=== PATIENT | male | born 1960 | race Caucasian/White ===

== ENCOUNTER 2022-11-02 18:52 | Inpatient (IN) | payer OTHER, MEDICAID ==
[~2022-11-02] VITALS: Ht 182.9 cm; Wt 77.1 kg
[2022-11-02 19:04] VITALS: BP 126/74
[2022-11-02 19:54] LABS: PROTHROMBIN TIME 10.9 secs (10.8-13.4)
--- NOTE | 2022-11-02 19:55 | NUR ---
Patient resting in bed, nonverbal, awake, chest rise and fall symmetrical, no s/s of pain or s/s of distress, patient on monitor.
[2022-11-02 20:07] LABS: BASOPHILS % (AUTO) 0.6 % (0.0-2.0); EOSINOPHILS # (AUTO) 0.3 K/uL (0-0.4); EOSINOPHILS % (AUTO) 3.5 % (0.0-4.0); HEMATOCRIT 32.6 % (36-52); HEMOGLOBIN 11.3 g/dL (12.0-18.0); LYMPHOCYTES # (AUTO) 1.5 K/uL (2.0-11.5); LYMPHOCYTES % (AUTO) 19.1 % (20.5-51.1); MEAN CORPUSCULAR HEMOGLOBIN 30 pg (27-31); MEAN CORPUSCULAR HGB CONC 35 g/dL (33-37); MEAN CORPUSCULAR VOLUME 86.2 fL (80-94); MONOCYTES # (AUTO) 0.7 K/uL (0.8-1.0); MONOCYTES % (AUTO) 8.6 % (1.7-9.3); NEUTROPHILS # (AUTO) 5.3 K/uL (1.8-7.7); NEUTROPHILS % (AUTO) 68.2 % (42.2-75.2); PLATELET COUNT (AUTO) 541 K/uL (140-450); RED BLOOD CELL COUNT(AUTO) 3.78 MIL/uL (4.20-6.10); RED CELL DISTRIBUTION WIDTH 13.4 % (11.6-13.7); WHITE BLOOD COUNT (AUTO) 7.7 K/uL (4.8-10.8)
[2022-11-02 20:25] LABS: ALBUMIN 2.4 g/dL (3.4-5.0); ANION GAP 13.8 (8-16); CARBON DIOXIDE 26.4 mmol/L (21-32); CREATININE 0.9 mg/dL (0.6-1.3); POTASSIUM 4.2 mmol/L (3.5-5.1); TOTAL BILIRUBIN 0.4 mg/dL (0.0-1.0)
[2022-11-02] MEDS ORDERED: POTASSIUM CHLORIDE 10 MEQ TABER PO PRN (20:55)
[2022-11-02] MEDS ORDERED: MORPHINE SULFATE 2 MG/ML SYR IVP PRN (20:55)
[2022-11-02] MEDS ORDERED: LORazepam 2 MG/ML VIAL IVP PRN (20:55)
[2022-11-02] MEDS ORDERED: ACETAMINOPHEN 325 MG TAB PO PRN (20:55)
[2022-11-02] MEDS ORDERED: DOCUSATE SODIUM 100 MG GELCAP PO PRN (20:55)
[2022-11-02] MEDS ORDERED: ONDANSETRON 4 MG/2 ML VIAL IVP PRN (20:55)
[2022-11-02] MEDS ORDERED: MAG SULF 2000 MG/WATER PREMIX 50 ML IV PRN (20:55)
[2022-11-02] MEDS ORDERED: ZOLPIDEM 10 MG TAB PO PRN (20:55)
[2022-11-02] MEDS ORDERED: DEXTROSE 50% 50 ML SYR IVP PRN (21:00)
[2022-11-02] MEDS: DEXT 5% /NACL 0.9% 1,000 ML IV SCH (21:32)
[2022-11-02] MEDS: BLOOD GLUCOSE MONITORING 1 DEV DEV FS SCH (21:41)
--- NOTE | 2022-11-02 21:55 | NUR ---
Patient resting in bed, nonverbal, awake, chest rise and fall symmetrical, no s/s of pain or s/s of distress, patient on monitor.
--- NOTE | 2022-11-02 22:10 | NUR ---
Patient will be admitted to care of Leonila FLOWERS. Admited to [facility]. Will go to room 123B. Belongings list completed. Report to Leonila FLOWERS. Leonila FLOWERS verbalized understanding of report, no further questions.
--- NOTE | 2022-11-02 23:00 | NUR ---
62 YEARS OLD MALE PT ADMITTED FROM ER WITH DX OF G-TUBE MALFUNCTION, PT REPORTED PULLED OUT GT AWAKE NON-VERBAL, WITH H/X CVA, WITH L/R WEAKNESS. PT ORIENTED TO ROOM, INFORMED OF ALL ORDERS CONTINUE WITH PLAN OF CARE
[2022-11-03 00:10] VITALS: BP 146/79
[2022-11-03 04:00] VITALS: BP 136/76
[2022-11-03 06:06] LABS: BASOPHILS # (AUTO) 0.1 K/uL (0.00-0.22); BASOPHILS % (AUTO) 0.8 % (0.0-2.0); EOSINOPHILS # (AUTO) 0.3 K/uL (0-0.4); EOSINOPHILS % (AUTO) 4.4 % (0.0-4.0); HEMATOCRIT 32.7 % (36-52); HEMOGLOBIN 11.3 g/dL (12.0-18.0); LYMPHOCYTES # (AUTO) 1.7 K/uL (2.0-11.5); LYMPHOCYTES % (AUTO) 24.2 % (20.5-51.1); MEAN CORPUSCULAR HEMOGLOBIN 30 pg (27-31); MEAN CORPUSCULAR HGB CONC 35 g/dL (33-37); MEAN CORPUSCULAR VOLUME 86.7 fL (80-94); MONOCYTES # (AUTO) 0.6 K/uL (0.8-1.0); MONOCYTES % (AUTO) 8.8 % (1.7-9.3); NEUTROPHILS # (AUTO) 4.3 K/uL (1.8-7.7); NEUTROPHILS % (AUTO) 61.8 % (42.2-75.2); PLATELET COUNT (AUTO) 572 K/uL (140-450); RED BLOOD CELL COUNT(AUTO) 3.78 MIL/uL (4.20-6.10); RED CELL DISTRIBUTION WIDTH 13.4 % (11.6-13.7)
[2022-11-03 06:36] LABS: ANION GAP 9.5 (8-16); CARBON DIOXIDE 29.2 mmol/L (21-32); CREATININE 1.3 mg/dL (0.6-1.3); POTASSIUM 3.7 mmol/L (3.5-5.1)
[2022-11-03] MEDS: BLOOD GLUCOSE MONITORING 1 DEV DEV FS SCH ×4 (06:44→21:48)
[2022-11-03 08:00] VITALS: BP 158/94
--- NOTE | 2022-11-03 09:03 | NUR ---
PATIENT HAS BEEN SCREENED AND CATEGORIZED HIGH NUTRITION RISK. PATIENT WILL BE SEEN WITHIN 1-2 DAYS OF ADMISSION. FNS REFERRAL FOR "DYSPHAGIA" AND FNS NUTRITION CONSULT FOR "YOVANI 12 OR LOWER" RECEIVED ON 11/03/22 REVIEWED BY YONATHAN MEJIA RD
[2022-11-03] MEDS: DEXT 5% /NACL 0.9% 1,000 ML IV SCH (11:02)
[2022-11-03 16:00] VITALS: BP 142/92
--- NOTE | 2022-11-03 16:35 | NUR ---
11/03/22 RD INITIAL ASSESSMENT COMPLETED PLEASE REFER TO NUTRITION ASSESSMENT UNDER CARE ACTIVITY FOR ESTIMATED NUTRITIONAL NEEDS. 1. MONITOR NPO STATUS 2. WHEN/IF MEDICALLY APPROPRIATE TO START TF, RECOMMEND GLUCERNA 1.2 AT GOAL RATE 65 ML/HR, FWF 150 ML Q6H TOLERATED - PROVIDES 1560 ML TOTAL VOLUME, 1872 KCAL, 93 GM PROTEIN AND 1856 ML FREE WATER DAILY MEETING 100% ESTIMATED KCAL AND PROTEIN NEEDS; ADEQUATE - START TF AT 2O ML/HR INCREASE BY 2O ML Q4H UNTIL GOAL IS REACHED TOLERATED 3. MONITOR GI SYMPTOMS, GASTRIC RESIDUALS AND NUTRITION RELATED LAB VALUES 4. CONSULT RD PRN 5. RD TO FOLLOW-UP 2-3 DAYS, HIGH RISK REVIEWED BY YONATHAN MEJIA RD
--- NOTE | 2022-11-03 20:05 | NUR ---
PATIENT IS AWAKE IN BED. NO S/S OF RESPIRATORY DISTRESS ON ROOM AIR. DENIES PAIN. SKIN WARM AND DRY TO THE TOUCH. IVF INFUSING WELL. CALL LIGHT WITHIN REACH. ALL SAFETY PRECAUTIONS ARE IN PLACE.
--- NOTE | 2022-11-03 21:48 | NUR ---
BLOOD SUGAR WAS 154, NO INSULIN COVERAGE ORDERED BY DR MERCEDES. PATIENT IS NPO.
[2022-11-04] VITALS: BP 143/78
[2022-11-04] MEDS: DEXT 5% /NACL 0.9% 1,000 ML IV SCH ×3 (01:31→15:49)
[2022-11-04] MEDS: BLOOD GLUCOSE MONITORING 1 DEV DEV FS SCH ×4 (06:33→20:16)
--- NOTE | 2022-11-04 06:33 | NUR ---
CHECK BLOOD SUGAR WAS 137 NO INSULIN COVERAGE NEEDED.
[2022-11-04 07:07] LABS: BASOPHILS # (AUTO) 0.1 K/uL (0.00-0.22); BASOPHILS % (AUTO) 0.9 % (0.0-2.0); EOSINOPHILS # (AUTO) 0.3 K/uL (0-0.4); EOSINOPHILS % (AUTO) 5.3 % (0.0-4.0); HEMATOCRIT 33.3 % (36-52); HEMOGLOBIN 11.4 g/dL (12.0-18.0); LYMPHOCYTES # (AUTO) 1.7 K/uL (2.0-11.5); LYMPHOCYTES % (AUTO) 26.4 % (20.5-51.1); MEAN CORPUSCULAR HEMOGLOBIN 30 pg (27-31); MEAN CORPUSCULAR HGB CONC 34 g/dL (33-37); MEAN CORPUSCULAR VOLUME 88.7 fL (80-94); MONOCYTES # (AUTO) 0.6 K/uL (0.8-1.0); MONOCYTES % (AUTO) 9.4 % (1.7-9.3); NEUTROPHILS # (AUTO) 3.7 K/uL (1.8-7.7); PLATELET COUNT (AUTO) 593 K/uL (140-450); RED BLOOD CELL COUNT(AUTO) 3.76 MIL/uL (4.20-6.10); RED CELL DISTRIBUTION WIDTH 13.6 % (11.6-13.7); WHITE BLOOD COUNT (AUTO) 6.3 K/uL (4.8-10.8)
--- NOTE | 2022-11-04 07:19 | NUR ---
GAVE REPORT TO AM SHIFT NURSE FOR CONTINUITY OF CARE.
[2022-11-04 07:39] LABS: ANION GAP 8.5 (8-16); CARBON DIOXIDE 29.9 mmol/L (21-32); CREATININE 0.9 mg/dL (0.6-1.3); POTASSIUM 3.4 mmol/L (3.5-5.1)
--- NOTE | 2022-11-04 13:30 | NUR ---
WOUND CARE EVALUATION NOTES: REASON FOR EVALUATION: DISLODGED GTUBE. WOUND ASSESSMENT COMPLETED ON THIS 62 Y/O MALE ADMITTED TO [facility] UN[facility] FOR GTUBE MALFUNCTION. PATIENT IS FROM [facility]. PAST MEDICAL HISTORY INCLUDES CVA, HTN, HLD, DM , STROKE, LEFT SIDED DEFICITS, GTUBE. ALL ABOVE INFORMATION WAS OBTAINED FROM THE ADMISSION H&P. SKIN IS WARM TO TOUCH. PLAN OF CARE AND PRESSURE PREVENTATIVE MEASURES DISCUSSED WITH PATIENT AND PRIMARY RN. PATIENT ADMITTED WITH GTUBE MALFUNCTION AND OPEN STOMA ON LEFT UPPER ABDOMEN. COMORBIDITIES RELATED TO FURTHER SKIN BREAKDOWN SUCH DECREASED MOBILITY AND DECREASED FUNCTIONAL ABILITY. INTEGUMENTARY: - LEFT UPPER ABDOMEN PREVIOUS GTUBE STOMA 1 X 0.3 X 0 CM, ALREADY HAS CLOSED SCAB. NO DISCHARGE, ODOR, BLEEDING. PERIWOUND PINK, INTACT. RECOMMENDATIONS: - LEFT UPPER ABDOMEN PREVIOUS GTUBE STOMA: CLEANSE WITH NS, PAT DRY, AND COVER WITH ISLAND DRESSING. - TURN AND REPOSITION PATIENT Q2H TO LEFT AND RIGHT SIDE TO OFFLOAD SACRALCOCCYX. - ASSESS AND MONITOR SKIN CONDITION DURING POSITION CHANGE. PLEASE PAY ATTENTION TO SACRALCOCCYX AND HEELS. - KEEP SKIN DRY AND CLEAN AT ALL TIMES. - RD CONSULT RECOMMENDATIONS DISCUSSED WITH PRIMARY RN. WILL FOLLOW-UP PATIENT Q7-10 DAYS AND PRN. PLEASE CONTACT WOUND CARE NURSE FOR ANY CONCERNS AND CHANGES IN WOUND CONDITION.
[2022-11-04 16:00] VITALS: BP 159/85
--- NOTE | 2022-11-04 19:20 | NUR ---
RECEIVED PT IN BED AWAKE, NON-VERBAL. NO S/SX OF PAIN NOR DISCOMFORT. NO ACUTE RESPIRATORY DISTRESS. IV STARTED IN THE RIGHT UPPER ARM GAUGE 22 X1 ATTEMPT, PT TOLERATED WELL. INCONTINENT OF URINE, CLEANED PT AND MADE COMFORTABLE IN BED, BED ALARM ON, CALL LIGHT IN REACH.
[2022-11-04] MEDS ORDERED: KCL 20 MEQ IN 100 mL PREMIX 100 ML IV SCH (20:55)
[2022-11-05] VITALS: BP 156/82
[2022-11-05] MEDS: DEXT 5% /NACL 0.9% 1,000 ML IV SCH ×2 (05:44→21:42)
[2022-11-05 06:08] LABS: BASOPHILS # (AUTO) 0.1 K/uL (0.00-0.22); BASOPHILS % (AUTO) 1.1 % (0.0-2.0); EOSINOPHILS # (AUTO) 0.4 K/uL (0-0.4); EOSINOPHILS % (AUTO) 5.9 % (0.0-4.0); HEMATOCRIT 32.5 % (36-52); HEMOGLOBIN 11.1 g/dL (12.0-18.0); LYMPHOCYTES # (AUTO) 1.7 K/uL (2.0-11.5); LYMPHOCYTES % (AUTO) 24.6 % (20.5-51.1); MEAN CORPUSCULAR HEMOGLOBIN 30 pg (27-31); MEAN CORPUSCULAR HGB CONC 34 g/dL (33-37); MEAN CORPUSCULAR VOLUME 89.3 fL (80-94); MONOCYTES # (AUTO) 0.6 K/uL (0.8-1.0); NEUTROPHILS % (AUTO) 59.4 % (42.2-75.2); PLATELET COUNT (AUTO) 621 K/uL (140-450); RED BLOOD CELL COUNT(AUTO) 3.64 MIL/uL (4.20-6.10); RED CELL DISTRIBUTION WIDTH 13.7 % (11.6-13.7); WHITE BLOOD COUNT (AUTO) 6.8 K/uL (4.8-10.8)
[2022-11-05 06:14] LABS: ANION GAP 8.1 (8-16); CARBON DIOXIDE 29.5 mmol/L (21-32); CREATININE 0.9 mg/dL (0.6-1.3); POTASSIUM 3.6 mmol/L (3.5-5.1)
--- NOTE | 2022-11-05 06:30 | NUR ---
PATIENT IS ASLEEP. ALL NEEDS ATTENDED TO. PT IS STABLE CONDITION. SAFETY PRECAUTIONS IN PLACE, CALL LIGHT IN REACH
[2022-11-05] MEDS: BLOOD GLUCOSE MONITORING 1 DEV DEV FS SCH ×4 (06:37→21:43)
[2022-11-05 08:00] VITALS: BP 155/80
[2022-11-05 16:00] VITALS: BP 160/88
--- NOTE | 2022-11-05 23:56 | NUR ---
PT AWAKE REMOVING CLOTHES PULLING AT IV LINE NOTED TO BE ANXIOUS ATIVAN GIVEN ORDERED
[2022-11-06] VITALS: BP 139/78
[2022-11-06 05:44] LABS: BASOPHILS # (AUTO) 0.1 K/uL (0.00-0.22); EOSINOPHILS # (AUTO) 0.3 K/uL (0-0.4); EOSINOPHILS % (AUTO) 5.2 % (0.0-4.0); HEMATOCRIT 33.1 % (36-52); HEMOGLOBIN 11.1 g/dL (12.0-18.0); LYMPHOCYTES # (AUTO) 1.7 K/uL (2.0-11.5); LYMPHOCYTES % (AUTO) 27.9 % (20.5-51.1); MEAN CORPUSCULAR HEMOGLOBIN 30 pg (27-31); MEAN CORPUSCULAR HGB CONC 34 g/dL (33-37); MEAN CORPUSCULAR VOLUME 88.3 fL (80-94); MONOCYTES # (AUTO) 0.5 K/uL (0.8-1.0); MONOCYTES % (AUTO) 8.6 % (1.7-9.3); NEUTROPHILS # (AUTO) 3.5 K/uL (1.8-7.7); NEUTROPHILS % (AUTO) 57.3 % (42.2-75.2); PLATELET COUNT (AUTO) 611 K/uL (140-450); RED BLOOD CELL COUNT(AUTO) 3.75 MIL/uL (4.20-6.10); RED CELL DISTRIBUTION WIDTH 13.6 % (11.6-13.7); WHITE BLOOD COUNT (AUTO) 6.1 K/uL (4.8-10.8)
[2022-11-06] MEDS: BLOOD GLUCOSE MONITORING 1 DEV DEV FS SCH ×3 (06:16→16:15)
--- NOTE | 2022-11-06 06:16 | NUR ---
PT REMAINS NPO FOR GT PLACEMENT CONSENT ON CHART AND SIGNED NO DISTRESS AT THIS TIME ALL NEEDS ANTICIPATED AND MET
[2022-11-06 06:28] LABS: ANION GAP 10.2 (8-16); CARBON DIOXIDE 26.1 mmol/L (21-32); CREATININE 0.8 mg/dL (0.6-1.3); POTASSIUM 3.3 mmol/L (3.5-5.1)
--- NOTE | 2022-11-06 07:49 | NUR ---
NURSES NOTE PATIENT RECEIVED AT BED SIDE , A/OX2 , VSS , PT MED SURGE , ON NASAL CANNULA 3LITER , NPO BED REST WITH RIGHT SIDE WEAKNESS , INCONTINENT X2, ON IV FLUID N/S 0.9% 80CC/H , SKIN INTACT , SAFETY PROACTION ON PLACE , SIDE RAILS UP X3 BED IN LOWER POSITION , CALL LIGHT WITHIN REACH , NO COMPLAIN AT THIS TIME , STILL UNDER OBSERVE .
[2022-11-06 08:47] VITALS: BP 155/88
[2022-11-06] MEDS: DEXT 5% /NACL 0.9% 1,000 ML IV SCH ×2 (11:05→12:50)
[2022-11-06] MEDS ORDERED: fentaNYL citrate 0.05 MG/ML VIAL ONE (11:55)
[2022-11-06] MEDS ORDERED: MIDAZOLAM 2 MG/2 ML VIAL ONE ×2 (11:55)
[2022-11-06] MEDS ORDERED: ceFAZolin 1,000 MG VIAL ONE (11:55)
--- NOTE | 2022-11-06 12:10 | NUR ---
NURSES NOTE PATIENT OUT OF THE FLOOR FOR GASTRIC TUB PLACEMENT, PT NPO .
[2022-11-06] MEDS ORDERED: DOCU-299 PO (12:15)
[2022-11-06] MEDS ORDERED: LACT500C2 PO (12:16)
[2022-11-06] MEDS ORDERED: MIDAZOLAM 2 MG/2 ML VIAL IVP ONE (12:50)
[2022-11-06] MEDS ORDERED: fentaNYL citrate 0.05 MG/ML VIAL IVP ONE (12:50)
--- NOTE | 2022-11-06 13:09 | NUR ---
NURSES NOTE I CALL PT SON GAYATRI AUGUSTINE TO INFORMED HIM HIS DAD HE CAN TRANSFER TO SNF TODAY ON HIS # [phone] HE DOSENT ANSWER , MASSAGE LEFT , WAITING TO CALL ME BACK .
--- NOTE | 2022-11-06 13:11 | NUR ---
NURSES NOTE PATIENT COME BACK FROM OR GASTRIC TUBE REPLACED ON LEFT UPPER ABDOMINAL , PATIENT STABLE VSS REDDT TO TRANSFER TO SNF TODAY .
[2022-11-06 13:17] VITALS: BP 152/87
--- NOTE | 2022-11-06 13:37 | NUR ---
NURSES NOTE REPOT GIVEN TO JEREMY FLOWERS FROM [facility] ,
--- NOTE | 2022-11-06 16:01 | NUR ---
TOMMY MCKEON RECEIVED ORDER FOR PT TO RETURN BACK TO SNF. FAXED TO [facility] LOCATED AT [address] [address]. SPOKE WITH ELIZABETH AND PT WILL BE GOING TO ROOM 15-A [address]ER DR DENNIS. [facility] SET UP TRANSPORTATION WITH [facility] WITH A 1830 BLOCKER HAND TIME. CHARGE NURSE SALMA AND SON DAVION MADE AWARE OF THE ABOVE INFORMATION.
[2022-11-06 16:22] VITALS: BP 147/89
--- NOTE | 2022-11-06 16:37 | NUR ---
UPDATE ON PATIENT PATIENT HAS DC ORDER REPORT GIVEN TO SNF , GASTRIC TUB INSERTED NURSES NOTE PATIENT RECEIVED AT BED SIDE , A/OX2 , VSS , PT MED SURGE , ON NASAL CANNULA 3LITER , NPO BED REST WITH LEFT SIDE WEAKNESS HEMIPLEGIA , INCONTINENT X2, ON IV FLUID N/S 0.9% 80CC/H , SKIN INTACT , SAFETY PROACTION ON PLACE , SIDE RAILS UP X3 BED IN LOWER POSITION , CALL LIGHT WITHIN REACH , NO COMPLAIN AT THIS TIME , STILL UNDER OBSERVE .
--- NOTE | 2022-11-06 18:25 | NUR ---
NURSES NOTE PATIENT TRANSFER TO [facility] , A/OX2 , VSS , DISCHARGE PACKET GIVEN TO EMS TEAM REPORT GIVEN EARLY TO ESTUARDO RN ON SNF , IV ARM BAND REMOVED , HIS BELONGING GIVEN TO AMBULANCE TEAM PATIENT TRANSFER WITH TEAM , I CALLD EARLY HIS SON GAYATRI HE DONT ANSWER MY CALL , LEFT HIM MASSAGE SON NEVER CALL BACK .
--- NOTE | 2022-11-06 18:29 | NUR ---
I CALLED THE SON GAYATRI , HE INFORMED PATIENT TRANSFER TO SNF , HE SAID ITS OK .
== END 2022-11-06 18:25 | DRG 393 ==
LOC: MED 18:52 → MTU 20:52 → MMU 20:55 → MTU 21:57
PROVIDERS: ADMIT Family Medicine; ATTEND Family Medicine
PROC: 0DH68UZ Insertion of Feeding Device into Stomach, Via Natural or Artificial Opening Endoscopic (ICD-10-PCS; principal; 2022-11-06 14:30)
DX: K94.23 Gastrostomy malfunction (principal); E43 Unspecified severe protein-calorie malnutrition; E87.1 Hypo-osmolality and hyponatremia; I10 Essential (primary) hypertension; E11.9 Type 2 diabetes mellitus without complications; E78.5 Hyperlipidemia, unspecified; D63.1 Anemia in chronic kidney disease; Z20.822 Contact with and (suspected) exposure to COVID-19; E87.6 Hypokalemia; Z86.73 Personal history of transient ischemic attack (TIA), and cerebral infarction without residual deficits
CPT/HCPCS: 36415; 80048; 80053; 82948; 83735; 85025; 85610; 85730; 87081; 99285; J0690; J2060; J2250; J3010; J3480; J7030

== ENCOUNTER 2022-12-23 21:20 | Emergency (ER) | payer OTHER, MEDICAID ==
[~2022-12-23] VITALS: Ht 182.9 cm; Wt 72.6 kg
[~2022-12-23 21:20] MED LIST: DOCU-299 PO; LACT500C2 PO
--- NOTE | 2022-12-23 21:39 | NUR ---
PT JEFFERY BLS. TAKEN TO BED 8
[2022-12-23 21:44] VITALS: BP 177/107
--- NOTE | 2022-12-23 22:11 | NUR ---
PT TAKEN TO CT
--- NOTE | 2022-12-23 22:29 | NUR ---
PT RETURN FROM CT
--- NOTE | 2022-12-23 22:41 | NUR ---
ASSUMED PHIL , 62 YO MALE HERE FOR EVALUATIO S/P FALL, PT ON C SPINE PRECAUTION ,C/O NECK PAIN
--- NOTE | 2022-12-23 22:50 | NUR ---
PTREMOVED C-COLLAR REFUSED TO PUT IT BACK ON, dR BILLINGS MADE AWAREPER OK NOT TO HAVE C-COLLAR
--- NOTE | 2022-12-24 00:31 | NUR ---
PT HAS BEEN DISPO PT IS FROM [facility]. NO TRANSPORTION IS AVAL. SPOKE WITH CHARGE NURSE FROM [facility] AND WILL SET UP TRANSPORTION IN AM
--- NOTE | 2022-12-24 00:45 | NUR ---
RESTING , PT UPDATED HIM OF THE PLAN OF CARE
--- NOTE | 2022-12-24 00:50 | NUR ---
PT AWARE OF STAYING TILL AM FOR TRANSPORTION
--- NOTE | 2022-12-24 04:27 | NUR ---
PT ASLEEP WITH HOB ELEVATED. PT ON BEDSIDE EXPERIENCED TRUCK DRIVER. RESP EVEN AND UNLABORED
--- NOTE | 2022-12-24 09:51 | NUR ---
ATTEMPTED TO SIT UP PATIENT AND PLACE IN WC, UNABLE TO HAVE PT SIT UPRIGHT, UNABLE TO MOVE THE RIGHT SIDE OF BODY. NOTED DIAPER SOILED IN PEE, DIAPER CHANGED AND KEPT CLEAN AND DRY
--- NOTE | 2022-12-24 12:31 | NUR ---
SPOKE TO JERMAIN FLOWERS FROM [facility] FOR PT REPORT INFORMED ABOUT TRANSPORT AT 1330-2PM. INFORMED OF PT CONDITION
--- NOTE | 2022-12-24 12:43 | NUR ---
GT AUSCULTATED FOR PLACEMENT, 0CC OF RESIDUALS NOTED. 1 BOX OF GLUCERNA GIVEN VIA GT BY GRAVITY. HOB ELEAVTED, PT TOLERATED WELL. 200CC OF LUKEWARM WATER GIVEN VIA GT FOR FLUSH.
[2022-12-24 13:37] VITALS: BP 152/89
--- NOTE | 2022-12-24 13:37 | NUR ---
Patient discharged with v/s stable. Written and verbal after care instructions given and explained. Patient verbalized understanding. Transport picked up to be taken [facility]. All questions addressed prior to discharge. Advised to follow up with PMD.
== END 2022-12-24 13:37 ==
LOC: MED 21:20
DX: S09.90XA Unspecified injury of head, initial encounter (principal); S19.9XXA Unspecified injury of neck, initial encounter; E11.9 Type 2 diabetes mellitus without complications; I10 Essential (primary) hypertension; Z79.899 Other long term (current) drug therapy; W19.XXXA Unspecified fall, initial encounter; Y93.89 Activity, other specified; Y92.128 Other place in nursing home as the place of occurrence of the external cause; Y99.8 Other external cause status
CPT/HCPCS: 70450; 72125; 72192; 99285